=== PATIENT | female | born 1955 | race Caucasian/White ===

== ENCOUNTER 2019-01-03 13:27 | Observation (INO) | payer SELFPAY ==
[~2019-01-03] VITALS: Ht 165.1 cm; Wt 123.4 kg
[~2019-01-03 13:27] MED LIST: ATENOLOL50 MG PO; DURAGESIC1 EAC1; NORCO 10-325 T1 EACH PO; PROZAC10 MG PO
--- OUTSIDE RECORDS SUMMARY | 2019-01-03 13:30 | XMS REPORT ---
Author Author Stefanie Barnett [facility] [place] eClinicalWorks Address Unknown Phone Unavailable Care Team Providers Care Transit Manager Name Role Phone Stefanie Barnett Unavailable Allergies, Adverse Reactions, Alerts Substance Reaction Event Type Band-Aid Anti-Itch Info Not Available Drug Allergy Reglan Info Not Available Drug Allergy Demerol Info Not Available Drug Allergy tape Info Not Available Non Drug Allergy Sulfa Info Not Available Non Drug Allergy Problems Problem Type Condition Code Onset Dates Condition Status Assessment Depression, major, recurrent, moderate F33.1 Active Problem Autoimmune disease, not elsewhere classified M35.9 Active Problem Anxiety F41.9 Active Problem Psoriasis L40.9 Active Problem Fibromyalgia M79.7 Active Problem Depression, major, recurrent, moderate F33.1 Active Problem Other ulcerative colitis with complication K51.819 Active Problem Acquired hypothyroidism E03.9 Active Problem Irritable bowel syndrome with diarrhea K58.0 Active Assessment Annual physical exam Z00.00 Active Assessment Psoriasis L40.9 Active Assessment Polyarthralgia M25.50 Active Assessment Acquired hypothyroidism E03.9 Active Assessment Irritable bowel syndrome with diarrhea K58.0 Active Assessment Fibromyalgia M79.7 Active Assessment Elevated blood pressure reading without diagnosis of hypertension R03.0 Active Assessment Anxiety F41.9 Active Medications Medication Code System Code Instructions Start Date End Date Status Dosage Baclofen ND 74119773842 10 mg Orally at bedtime Active 1 tablet Tizanidine HCl [facility] 65107549639 4 mg Orally four times a day (qid) Active 1 tablet as needed Lorazepam ND 55251830207 1 MG Orally qd prn anxiety Jul 13, 2018 Active 1 tablet Prozac [facility] 64353006697 20 mg Orally Once a day Jul 13, 2018 Active 1 capsule Triamcinolone Acetonide [facility] 02613654767 0.1 % Externally Twice a day Jul 13, 2018 Active 1 application to affected area Fentanyl ND 45700780348 50 MCG/HR Transdermal Active 1 patch to skin Amitriptyline HCl ND 93859764937 50 MG Orally Once a day Active 1 tablet Kabetogama [facility] 18933015021 10-325 MG Orally every 12 hrs Active 1 tablet as needed Atenolol [facility] 82396363833 50 MG Orally Once a day Active 1 tablet [place] Thyroid [facility] 82750167793 120 mg Orally Once a day Jul 13, 2018 Active 1 tablet on an empty stomach Gabapentin [facility] 00077964508 600 MG Orally four times a day (qid) Active 1 tablet BusPIRone HCl [facility] 28780102151 15 MG Orally then 1 tablet qd Jul 13, 2018 Active 1/2 tablet bid for 1 week Vital Signs Date/Time: Jul 13, 2018 Cardiac Monitoring Heart Rate 120 /min Temperature 96.9 F Results No Known Results Summary Purpose eClinicalWorks Submission
--- OUTSIDE RECORDS SUMMARY | 2019-01-03 13:30 | XMS REPORT | Continuity of Care Document ---
Author Author [facility] Interface Address Unknown Phone Unavailable Problems Problem Status Onset Date Classification Date Reported Comments Source Depression, major, recurrent, moderate Active Diagnosis 12/29/2018 [id number] Autoimmune disease, not elsewhere classified Active Problem 12/29/2018 2.16.840.1.070926.4.391.11.53568 Anxiety Active Problem 12/29/2018 2.16.840.1.232241.4.391.11.35226 Psoriasis Active Problem 12/29/2018 2.16.840.1.736289.4.391.11.53581 Fibromyalgia Active Problem 12/29/2018 2.16.840.1.270150.4.391.11.81337 Other ulcerative colitis with complication Active Problem 12/29/2018 2.16.840.1.197693.4.391.11.03288 Acquired hypothyroidism Active Problem 12/29/2018 2.16.840.1.204490.4.391.11.20384 Irritable bowel syndrome with diarrhea Active Problem 12/29/2018 2.16.840.1.970941.4.391.11.74342 Polyarthralgia Active Diagnosis 12/29/2018 2.16.840.1.896792.4.391.11.09907 Elevated blood pressure reading without diagnosis of hypertension Active Diagnosis 12/29/2018 2.16.840.1.162010.4.391.11.08020 Medications Medication Details Route Status Patient Instructions Ordering Provider Order Date Source Lorazepam 1 tablet Orally Active 1 MG Orally qd prn anxiety Angelina Cerna 07/13/2018 2.16.840.1.613004.4.391.11.62651 Prozac 1 capsule Orally Active 20 mg Orally Once a day Wilfridojigna Cerna 07/13/2018 2.16.840.1.857544.4.391.11.63408 Triamcinolone Acetonide 1 application to affected area Externally Active 0.1 % Externally Twice a day [facility] 07/13/2018 2.16.840.1.282525.4.391.11.97472 [place] Thyroid 1 tablet on an empty stomach Orally Active 120 mg Orally Once a day [facility] 07/13/2018 2.16.840.1.257210.4.391.11.12326 BusPIRone HCl 1/2 tablet bid for 1 week Orally Active 15 MG Orally then 1 tablet qd [facility] 07/13/2018 2.16.840.1.801855.4.391.11.56398 Baclofen 1 tablet Orally Active 10 mg Orally at bedtime [facility] 2.16.840.1.417088.4.391.11.81625 Tizanidine HCl 1 tablet as needed Orally Active 4 mg Orally four times a day (qid) [facility] 2.16.840.1.705106.4.391.11.63892 Fentanyl 1 patch to skin Transdermal Active 50 MCG/HR Transdermal [facility] 2.16.840.1.774377.4.391.11.88918 Amitriptyline HCl 1 tablet Orally Active 50 MG Orally Once a day [facility] 2.16.840.1.387909.4.391.11.86108 [place] 1 tablet as needed Orally Active 10-325 MG Orally every 12 hrs [facility] 2.16.840.1.305149.4.391.11.66991 Atenolol 1 tablet Orally Active 50 MG Orally Once a day [facility] 2.16.840.1.813129.4.391.11.49632 Gabapentin 1 tablet Orally Active 600 MG Orally four times a day (qid) [facility] 2.16.840.1.719455.4.391.11.61323 Allergies, Adverse Reactions, Alerts Substance Category Reaction Severity Reaction type Status Date Reported Comments Source Band-Aid Anti-Itch Adverse Reaction Info Not Available Adverse Reaction Active 07/13/2018 2.16.840.1.541469.4.391.11.42292 Reglan Adverse Reaction Info Not Available Adverse Reaction Active 07/13/2018 2.16.840.1.805239.4.391.11.69234 Demerol Adverse Reaction Info Not Available Adverse Reaction Active 07/13/2018 2.16.840.1.722756.4.391.11.25390 tape Adverse Reaction Info Not Available Adverse Reaction Active 07/13/2018 2.16.840.1.313260.4.391.11.12586 Sulfa Adverse Reaction Info Not Available Adverse Reaction Active 07/13/2018 2.16.840.1.910372.4.391.11.15271 Immunizations Immunization Date Given Site Status Last Updated Comments Source Results Order Name Results Value Reference Range Date Interpretation Comments Source Vital Signs Vital Sign Value Date Comments Source Heart Rate 120 07/13/2018 2.16.840.1.854874.4.391.11.66185 Temperature Oral (F) 96.9 F 07/13/2018 2.16.840.1.948832.4.391.11.66064 Encounters Location Location Details Encounter Type Encounter Number Reason For Visit Attending Provider ADM Date DC Date Status Source Procedures Procedure Code Date Perfomer Comments Source
[2019-01-03 14:43] LABS: BASOPHILS # (AUTO) 0.1 (0.0-0.1); BASOPHILS % 0.9 % (0.0-1.0); EOSINOPHILS # (AUTO) 0.2 (0.0-0.4); EOSINOPHILS % 1.9 % (0.0-6.0); HEMATOCRIT 45.9 % (34.2-44.1); HEMOGLOBIN 14.9 g/dL (12.0-16.0); LYMPHOCYTES # (AUTO) 2.2 (1.0-3.2); MEAN CORPUSCULAR HEMOGLOBIN 29.3 pg (28-32); MEAN CORPUSCULAR HGB CONC 32.5 g/dL (31-35); MEAN CORPUSCULAR VOLUME 90.4 fL (81-99); MONOCYTES # (AUTO) 0.6 (0.2-0.8); MONOCYTES % 6.6 % (4.4-11.3); NEUTROPHILS # (AUTO) 5.4 (2.1-6.9); NEUTROPHILS % 64.1 % (38.7-80.0); PLATELET COUNT 248 x10e3/uL (140-360); RED BLOOD COUNT 5.08 x10e6/uL (3.6-5.1)
[2019-01-03 14:58] LABS: INR 0.79; PROTHROMBIN TIME 11.4 seconds (11.9-14.5)
[2019-01-03 14:59] LABS: PARTIAL THROMBOPLASTIN TIME 30.7 seconds (23.8-35.5)
[2019-01-03 15:06] LABS: ALBUMIN 4.1 g/dL (3.5-5.0); ALBUMIN/GLOBULIN RATIO 0.8 (0.8-2.0); ANION GAP 17.4 mmol/L (8-16); CALCIUM 11.9 mg/dL (8.4-10.2); CREATININE, SERUM 1.82 mg/dL (0.57-1.11); POTASSIUM 4.4 mmol/L (3.5-5.1)
[2019-01-03 15:25] LABS: THYROID STIMULATING HORMONE 1.547 uIU/mL (0.350-4.940)
[2019-01-03] MEDS ORDERED: LORAZEPAM INJ 2 MG/ML VIAL IV ONE (15:45)
[2019-01-03] MEDS ORDERED: HYDROCODONE/APAP 10MG-325MG TAB PO ONE (15:45)
--- NOTE | 2019-01-03 16:58 | Diagnostic Imaging Report ---
Exam: Brain MRI without contrast History: Bilateral hand numbness and tingling, possible multiple sclerosis Comparison studies: None Technique: Sagittal T2; axial DWI, FLAIR, MPGR, T1, Coronal FLAIR. Intravenous contrast: None Findings: Scalp: Normal in signal . No masses . Bone marrow: Normal in signal intensity. Extra-axial: No masses or fluid collections. Brain sulci: Appropriate for age. Ventricles: Normal in size . No hydrocephalus . Parenchyma: Few punctate T2/flair hyperintense foci in the supratentorial white matter, nonspecific findings, likely represent microvascular ischemic changes. No masses, hemorrhage, acute or chronic cortical ischemic insults. Suprasellar region: No abnormalities. Craniocervical junction: No abnormalities. Patent foramen magnum. No Chiari one malformation. Vessels: Normal flow-voids in the arteries and sinuses. IMPRESSION: 1. Few punctate foci of T2/FLAIR hyperintensity in the supratentorial white matter are non-specific but most commonly represent microvascular ischemic changes. 2. No findings which are characteristic for multiple sclerosis. Specifically, none meet the required modified Harden diagnostic criteria for multiple sclerosis. A preliminary report was provided by Dr. Zaman on 01/03/2019 4:55 PM. Signed by: Jordin Zaman MD on 01/03/2019 4:55 PM
[2019-01-03] MEDS ORDERED: FENTANYL 50 MCG/HR PATCH TOP STA (17:28)
[2019-01-03] MEDS: SODIUM CHLORIDE 0.9% 1000ML 1,000 ML IV SCH ×3 (18:27→21:40)
[2019-01-03] MEDS ORDERED: DEXTROSE 50% SYRINGE 50 ML IV PRN (19:30)
[2019-01-03] MEDS ORDERED: ONDANSETRON HCL INJ 2MG/ML 2ML 2 MG/ML VIAL IV PRN (19:30)
[2019-01-03] MEDS ORDERED: ONDANSETRON HCL INJ 2MG/ML 2ML 2 MG/ML VIAL IV STA (19:38)
[2019-01-03] MEDS ORDERED: MORPHINE SULFATE 2 MG/ML SYR 1ML IV STA (19:38)
[2019-01-03] MEDS ORDERED: MORPHINE SULFATE INJ 4 MG/ML INJ 1ML IV NR (19:45)
--- OUTSIDE RECORDS SUMMARY | 2019-01-03 20:14 | XMS REPORT ---
Author Author [facility] Address Unknown Phone Unavailable Care Team Providers Care Plant Floor Automation Manager Name Role Phone Tony BEARD Unavailable Unavailable Problems This patient has no known problems. Allergies, Adverse Reactions, Alerts This patient has no known allergies or adverse reactions. Medications This patient has no known medications. Results Test Description Test Time Test Comments Text Results Atomic Results Result Comments MRI BRAIN WO 2019-01-03 16:47:00 [place] [address] Patient Name: PINO HENDERSON MR #: [id number] : 1955 Age/Sex: 63/F Req #: [id number] Adm Physician: Ordered by: JOSEPH BEARD MD Report #: [id number] Location: ER Room/Bed: Procedure: [id number] MRI/MRI BRAIN WO Exam Date: Exam Time: REPORT STATUS: Signed Exam: Brain MRI without contrast History: Bilateral hand numbness and tingling, possible multiple sclerosis Comparison studies: None Technique: Sagittal T2; axial DWI, FLAIR, MPGR, T1, Coronal FLAIR. Intravenous contrast: None Findings: Scalp: Normal in signal . No masses . Bone marrow: Normal in signal intensity. Extra-axial: No masses or fluid collections. Brain sulci: Appropriate for age. Ventricles: Normal in size . No hydrocephalus . Parenchyma: Few punctate T2/flair hyperintense foci in the supratentorial white matter, nonspecific findings, likely represent microvascular ischemic changes. No masses, hemorrhage, acute or chronic cortical ischemic insults. Suprasellar region: No abnormalities. Craniocervical junction: No abnormalities. Patent foramen magnum. No Chiari one malformation. Vessels: Normal flow-voids in the arteries and sinuses. IMPRESSION: 1. Few punctate foci of T2/FLAIR hyperintensity in the supratentorial white matter are non-specific but most commonly represent microvascular ischemic changes. 2. No findings which are characteristic for multiple sclerosis. Specifically, none meet the required modified Harden diagnostic criteria for multiple sclerosis. A preliminary report was provided by Dr. Dasilva on 01/03/2019 4:55 PM. Signed by: Christa Dasilva MD on 01/03/2019 4:55 PM Dictated By: CHRISTA DASILVA MD Transcribed By: ABIGAIL on 01/03/191654 COPY TO: JOSEPH BEARD MD
[2019-01-03] MEDS: INSULIN GLARGINE 100 UNITS/ML VIAL SQ SCH (21:00)
[2019-01-03] MEDS: INSULIN LISPRO 100 UNIT/1 ML 3ML VIAL SQ SCH (21:12)
[2019-01-03] MEDS ORDERED: BACLOFEN10 MG PO (21:37)
[2019-01-03] MEDS ORDERED: ZANAFLEX4 MG (21:37)
[2019-01-03] MEDS ORDERED: GABAPENTIN400 MG PO (21:37)
[2019-01-03] MEDS ORDERED: AMITRIPTYLINE H25 MG PO (21:37)
[2019-01-03] MEDS ORDERED: LISINOPRIL10 MG PO (21:37)
--- NOTE | 2019-01-03 23:07 | NUR ---
Pt received from ER.Pt A&O and in no apparent distress. All safety measures ensured and pt call [place] near.
[2019-01-03 23:15] VITALS: BP 184/66
[2019-01-03 23:54] VITALS: BP 184/66
--- NOTE | 2019-01-03 23:59 | NUR ---
Call placed to Dr. Byers for order for pt pain meds.
[2019-01-04] MEDS ORDERED: FENTANYL 50 MCG/HR PATCH TD SCH (00:15)
[2019-01-04] MEDS ORDERED: HYDROCODONE/APAP 10MG-325MG TAB PO ONE (00:15)
--- NOTE | 2019-01-04 00:20 | NUR ---
Dr. Byers returned MD noelle orders given for one time dose of Isabel 10mg po and Fentanyl 50mcg patch q 72h to be restarted from pt home med list.
[2019-01-04] MEDS: SODIUM CHLORIDE 0.9% 1000ML 1,000 ML IV SCH ×3 (03:18→20:00)
[2019-01-04 04:00] VITALS: BP 78/48
[2019-01-04 05:37] LABS: BASOPHILS # (AUTO) 0.1 (0.0-0.1); EOSINOPHILS # (AUTO) 0.2 (0.0-0.4); EOSINOPHILS % 2.6 % (0.0-6.0); HEMATOCRIT 35.9 % (34.2-44.1); HEMOGLOBIN 11.7 g/dL (12.0-16.0); LYMPHOCYTES # (AUTO) 2.4 (1.0-3.2); LYMPHOCYTES % 32.6 % (18.0-39.1); MEAN CORPUSCULAR HEMOGLOBIN 29.6 pg (28-32); MEAN CORPUSCULAR HGB CONC 32.6 g/dL (31-35); MEAN CORPUSCULAR VOLUME 90.9 fL (81-99); MONOCYTES # (AUTO) 0.7 (0.2-0.8); NEUTROPHILS # (AUTO) 3.9 (2.1-6.9); NEUTROPHILS % 54.5 % (38.7-80.0); PLATELET COUNT 206 x10e3/uL (140-360); RED BLOOD COUNT 3.95 x10e6/uL (3.6-5.1); RED CELL DISTRIBUTION WIDTH 13.1 % (11.7-14.4)
--- NOTE | 2019-01-04 05:38 | NUR ---
Pt BP low 78/48. Rechecked BP and still same recording. Pt receiving Fentanyl 50mcg patch 3 72h and had Feura [place] 10mg po earlier. Pt respirations and other vitals normal. Pt IV fluids increased to increase BP. Asked pt about symptoms and her BP being low and pt admitted to taking her own meds of Lisinopril and Atenolol on her own without notifying me because she was "behind on taking her meds and she takes them at home like that." I explained to the pt that it is very important to not take meds without notifying the nurse. Pt expressed verbal understanding. Will continue to monitor pt and recheck BP.
[2019-01-04 06:04] LABS: ALBUMIN 2.9 g/dL (3.5-5.0); ALBUMIN/GLOBULIN RATIO 0.8 (0.8-2.0); CALCIUM 9.6 mg/dL (8.4-10.2); CREATININE, SERUM 1.64 mg/dL (0.57-1.11)
--- NOTE | 2019-01-04 06:20 | NUR ---
Pt repeat BP 82/43. Pt has no complaints and all other vitals still stable. Will inform day shift RN of situation and pt BP to be rechecked.
[2019-01-04 07:55] VITALS: BP 112/54
[2019-01-04] MEDS: INSULIN LISPRO 100 UNIT/1 ML 3ML VIAL SQ SCH ×6 (08:05→21:33)
[2019-01-04 08:43] VITALS: BP 112/54
[2019-01-04 11:19] VITALS: BP 104/56
--- NOTE | 2019-01-04 15:15 | NUR ---
Visit made by the Spiritual Care Department Pastoral Visitor, Cherry White. PV provided pastoral presence, prayer, hospitality, and supportive listening. Pastoral Visitor informed pt/family of the scope of [employer] and availability. SANJUANA GONZALES Principal Military Analyst Spiritual Care Department O: [phone] Pager: [phone] ([phone] number calling from)
[2019-01-04 16:00] VITALS: BP 105/56
[2019-01-04] MEDS: ATENOLOL 50 MG TAB PO SCH (16:30)
--- NOTE | 2019-01-04 17:10 | NUR ---
GAVE PACKET OF INFORMATION WITH COMM[employer]ITY [employer] FOR ASSISTANCE WITH LOW TO NO INCOME TO PATIENT. RESOURCES THAT PATIENT MAY BE ABLE TO FOLLOW UP UPON DISCHARGE. PT EDUCATED ON EACH RESOURCE AND UNDERSTANDING HOW TO FOLLOW UP TO SEE IF QUALIFIED FOR EACH RESOURCE.
--- NOTE | 2019-01-04 17:42 | NUR ---
GAVE SCHEDULED INSULIN BUT HELD SLIDING SCALE DUE TO NEWNESS OF DIAGNOSIS FOR FEAR OF BOTTOMING OUT BLOOD SUGAR.
[2019-01-04 20:00] VITALS: BP 130/64
[2019-01-04] MEDS ORDERED: GABAPENTIN 300 MG CAP PO SCH (21:00)
[2019-01-04] MEDS: INSULIN GLARGINE 100 UNITS/ML VIAL SQ SCH (21:33)
--- NOTE | 2019-01-04 21:47 | NUR ---
I called DR Byers at [phone] through his answering service. Dr. Byers called back at 2146. I stated the patient needed to take the following medications, and some of her medications were not renewed/continued. Amitriptyline 50mg qhs, Tizanidine 4mg QID prn Baclofen 10 mg QHS. Stated it was okay for the patient to take those medications. The patient brought her medications and prefers to take her own medication since she states "I am self pay, and do not want to pay for medications I already have". I will continue her medications.
[2019-01-05] VITALS: BP 143/55
[2019-01-05 00:19] VITALS: BP 130/64
--- NOTE | 2019-01-05 01:51 | Consultation ---
DATE OF CONSULTATION: 01/04/2019 Neurology Consult Note HISTORY OF PRESENT ILLNESS: Ms. Patton is a 63-year-old right-hand dominant woman with past medical history significant for chronic pain, hypertension, and recently diagnosed diabetes mellitus, admitted to [facility] on January 03, 2019 with pain and numbness. The patient awoke on the morning of January 01, 2019, with numbness affecting both hands, both arms, the neck, lower portion of the face, and tongue. Ms. Patton cannot say whether these symptoms began proximally and radiated distally or the reverse. She can only report numbness present in the areas described above. In addition to the numbness of the upper extremities, the patient reports numbness, burning pain, and tingling affecting the last three digits of both feet. The patient does not report a visual field cut or other disturbance, dysarthria, aphasia, weakness, poor balance, gait impairment, or dizziness associated with the above symptoms. Ms. Patton does report some confusion, which is further described as word-finding difficulty associated with the numbness and pain described above. On 01/03/2019, the patient contacted her pain management doctor regarding the above symptoms. The pain management doctor recommended the patient proceed to the emergency center of the closest hospital for further evaluation of her symptoms. Upon arrival in the emergency center, the patient was afebrile with a blood pressure of 168/114 mmHg and a pulse of 89 beats per minute. Her neurological examination was documented as being significant for mild weakness of the right leg. No other deficits were noted. In the emergency center, routine blood work revealed the patient to have a markedly elevated serum glucose of 456. Ms. Patton was also noted on routine blood work to have acute kidney injury with a BUN of 34, creatinine of 1.82, and estimated GFR of 28. A CT of the brain without contrast was performed, while the patient was in the emergency center as well. This study did not reveal evidence of recent large territorial ischemia or hemorrhage. Ms. Patton was admitted to [facility] under observation status for further evaluation and treatment of new onset diabetes mellitus, acute kidney injury, as well as pain and numbness. Ms. Patton reports the pain and numbness as described above persists at the time of this examination. However, she does report some improvement in the symptoms affecting her right side. Ms. Patton does have a known history of degenerative disk disease affecting the spine, for which she sees a pain management physician. REVIEW OF SYSTEMS: Burning with urination, confusion, facial numbness, numbness and tingling of the arms and legs, and neck and back pain. Otherwise, a 12-point review of systems is negative. PAST MEDICAL HISTORY: Hypertension, history of gestational diabetes mellitus, newly diagnosed diabetes mellitus, mitral valve prolapse, psoriatic arthritis, possible systemic lupus erythematosus, chronic neck and low back pain, fibromyalgia, myofascial syndrome, ulcerative colitis, a prior history of idiopathic intracranial hypertension. PAST SURGICAL HISTORY: section x3, cholecystectomy, partial hysterectomy with appendectomy. PAST HOSPITALIZATIONS: Surgeries/procedures as listed, numerous hospitalizations often due to gastrointestinal illness. FAMILY MEDICAL HISTORY: Diabetes mellitus and coronary artery disease. SOCIAL HISTORY: Ms. Patton is single. She is not employed. The patient does report a prior history of tobacco use, but quit smoking cigarettes approximately 40 years ago. The patient reports rare alcohol use. Ms. Patton does not report current or prior recreational drug use. HOME MEDICATIONS: Amitriptyline 50 mg by mouth at bedtime daily, atenolol 50 mg by mouth twice daily, baclofen 10 mg by mouth at bedtime daily, fentanyl patch 50 mcg, gabapentin 1200 mg by mouth three times daily, lisinopril 20 mg by mouth daily, and Zanaflex 4 mg by mouth four times daily. HOSPITAL MEDICATIONS: Atenolol, fentanyl, gabapentin, Lantus, Humalog, lisinopril, Zofran. ALLERGIES: SULFA, CLINDAMYCIN, HYDROMORPHONE, MEPERIDINE, AND METOCLOPRAMIDE. NO KNOWN FOOD ALLERGIES. NO KNOWN ALLERGIES TO LATEX. NO KNOWN ALLERGIES TO IODINE OR OTHER CONTRAST MATERIALS. PHYSICAL EXAMINATION: VITAL SIGNS: Height 65 inches, weight 272 pounds, BMI 45.3 kg/m2, blood pressure 105/56 mmHg, pulse 66 beats per minute, respiratory rate 16 breaths per minute, and oxygen saturation 98% on room air. GENERAL: The patient is awake and alert, does not appear distressed. Morbidly obese. HEENT: Normocephalic, atraumatic. Pupils are equal, round, and reactive to light. Moist mucous membranes. NECK: Supple. No appreciable thyromegaly. No appreciable carotid bruits. CARDIOVASCULAR: S1, S2, regular rate and rhythm. No murmurs, rubs, or gallops. RESPIRATORY: Clear to auscultation bilaterally. No wheezes, rhonchi, or rales. EXTREMITIES: The skin is warm and dry. No clubbing, cyanosis, or edema. The posterior tibial and dorsalis pedis pulses are 1+ and symmetric. SKIN: Psoriatic lesions over the bilateral legs. NEUROLOGIC: Memory/Attention: The patient is awake and alert, oriented to person, place, time, and situation. Cranial Nerves: Cranial nerve I - not tested. Cranial nerves II, III, IV, and - pupils are equal and round, react briskly to light (from 4 mm to 2 mm). Extraocular movements intact. No nystagmus. Cranial nerve V - sensation to light touch and pinprick is intact in the bilateral V1 through V3 distributions. Strength of the temporalis and masseter muscles are within normal limits. Cranial nerve VII - the face is symmetric as are all facial movements. Strength is within normal limits. Cranial nerve VIII - hearing is intact to finger rub bilaterally. Cranial nerves IX, X - the soft palate elevates equally and symmetrically. Cranial nerve XI - normal strength of the bilateral sternocleidomastoid and trapezius muscles. Cranial nerve XII - the tongue protrudes in midline and moves symmetrically from [id number]. Strength: Bulk is normal. Strength is 5/5 in the bilateral deltoids, biceps, triceps, wrist flexors and extensors, finger flexors and extensors, intrinsic hand muscles, hip flexors, knee flexors and extensors, ankle dorsiflexion and plantar flexion, and intrinsic foot muscles. Tone is normal. DTRs: Deep tendon reflexes are 2+ and symmetric at the triceps, biceps, brachioradialis, and patellas. Deep tendon reflexes are 1+ and symmetric at the Achilles. Plantar responses are flexor bilaterally. Sensation: Sensation is intact to light touch and pinprick in both arms and both legs. Cerebellar: Rycbql-tuqj-ujsvfk and heel-ovalle movements are intact without dysmetria or other impairment. Gait: Spontaneous gait is intact without impairment. Speech: Spontaneous speech is normal without appreciable dysarthria or aphasia. Repetition is intact. Involuntary movements: None. Pronator Drift: None. LABORATORY DATA: The most recent comprehensive metabolic panel is significant for sodium of 134, BUN of 28, creatinine of 1.64, estimated GFR of 32, serum glucose of 372, total protein of 6.4, and albumin of 2.9. Cardiac enzymes are negative x1. TSH 1.547. In the past 24 hours, the patient's serum glucoses have ranged from 176 to 456. The CBC with differential and platelets are unremarkable. PT 11.4, INR 0.79, and PTT 30.7. DIAGNOSTIC STUDIES: Electrocardiogram on 01/03/2019: Normal sinus rhythm at 90 beats per minute. Left atrial enlargement. MRI of the brain without contrast on 01/03/2019: On my review, there is no evidence of recent or remote large territorial ischemia, hemorrhage, mass, or mass effect. There are few scattered T2/FLAIR hyperintense foci in the supratentorial white matter compatible with mild chronic small vessel ischemic disease. Cerebral volumes are appropriate for age. ASSESSMENT AND PLAN: Ms. Patton is a 63-year-old right-hand dominant woman with past medical history as detailed, admitted to [facility] on January 03, 2019, with newly diagnosed diabetes mellitus, acute kidney injury, and pain and numbness as described in the history of present illness. At present, the patient's neurological examination is nonfocal. Her laboratory data and other diagnostic studies have been reviewed and are documented above. There is no evidence of stroke, multiple sclerosis, peripheral neuropathy, or other neurological disorder as the cause of the patient's symptoms. Given her history of chronic pain, Ms. Patton's current pain as well as the numbness is probably due to a combination of degenerative disk disease of the spine, fibromyalgia, and myofascial syndrome. There are no recommendations from the Neurology Service at this time. Consider a consult with Pain Management to address the patient's pain. Thank you for this consultation. Please call again with any questions or concerns. TIME SPENT: 50 minutes. Samina Prakash MD CP/KELLY /[phone] SAMIRA
[2019-01-05] MEDS: SODIUM CHLORIDE 0.9% 1000ML 1,000 ML IV SCH (03:28)
[2019-01-05 04:00] VITALS: BP 116/66
[2019-01-05] MEDS ORDERED: TIZANIDINE HCL 4 MG TAB PO PRN (05:00)
--- NOTE | 2019-01-05 06:32 | NUR ---
The patient is laying on her right side, eyes close, respirations are even and unlabored. Patient is no apparent distress. HOB elevated, bed low, wheels locked, and call light within reach. IV patent.
[2019-01-05 07:52] VITALS: BP 103/58
[2019-01-05] MEDS: INSULIN LISPRO 100 UNIT/1 ML 3ML VIAL SQ SCH ×4 (07:56→12:00)
[2019-01-05 08:05] VITALS: BP 103/58
[2019-01-05] MEDS: ATENOLOL 50 MG TAB PO SCH (08:40)
[2019-01-05] MEDS ORDERED: ONDANSETRON HCL 4 MG ORAL DISINTEGRATING TAB PO PRN (09:00)
[2019-01-05] MEDS ORDERED: LISINOPRIL 10 MG TAB PO SCH (09:00)
--- NOTE | 2019-01-05 09:05 | NUR ---
patient up in bed, AAOx3, Denies any pain or SOB, Dr Byers had rounds
[2019-01-05] MEDS ORDERED: LOSARTAN POTASS25 MG PO (11:33)
[2019-01-05] MEDS ORDERED: ZOCOR20 MG PO (11:33)
[2019-01-05] MEDS ORDERED: HUMULIN R100 UNIT/2 SC (11:34)
[2019-01-05 11:41] VITALS: BP 95/46
--- NOTE | 2019-01-05 12:39 | NUR ---
Nutrition Screen Note RD Recommendation for Physician: -Continue ADA diet as ordered -RD provided diabetic education on 01/05. Plan of Care: RD following, monitoring for tolerance and adequacy, diet education Nutrition reason for involvement: RN Consult ADA education Primary Diagnose(s): new ADA PMH: hypertension, history of gestational diabetes mellitus, newly diagnosed diabetes mellitus, mitral valve prolapse, psoriatic arthritis, possible systemic lupus erythematosus, chronic neck and low back pain, fibromyalgia, myofascial syndrome, ulcerative colitis, a prior history of idiopathic intracranial hypertension. Ht: 65in Wt: 272lb BMI: 45.3kg/m2 IBW: 125lb RD Assessment: (01/05) Chart reviewed. Labs and meds reviewed. 63yo F, who was admitted for pain and numbness. RD consulted for diabetic education. Visited pt in the room. Pt reported good appetite with no GI complains. No chewing or swallowing difficulty. Pt reported 15lbs weight gain in the last 3-[address] provided diet education as consulted. Will continue to monitor and follow. Current Diet: ADA Malnutrition Evaluation (01/05) The patient does not meet criteria for a specified degree of malnutrition at this time. Will re-evaluate at follow-up as appropriate. Diet Education Needs Assessment: Diet education indicated, pt was agreeable with plan. Learner(s): pt Time spent: 30minutes Barriers: No barriers identified. Cultural/Language Modifications: No cultural/language modifications noted. Pt speaks Welsh. Readiness: Pt eager to learn. Method: Handout, explanation Topics: Carbohydrate exchanges, Carbohydrate counting handouts, Reading the nutrition label, meal planning tips, exercise tips, servings/portion sizes, S/S of hypo & hyperglycemia Understanding/Compliance: Expect good understanding/compliance from pt. Will benefit from reinforcement. All questions have been answered. Nutrition Care Level: low Signed: Denisse Phillip, MS, RD, LD
--- NOTE | 2019-01-05 12:57 | NUR ---
patient discharged home , prescription given, instruction and hand off notes given regarding Diabetes management and diet. IV canula removed with tip intact, no ss of infiltration, no bruises noted. denies any SOB or pain, no distress noted, had lunch, son here in building to pick her. transported via to [facility]
[2019-01-05] MEDS ORDERED: AMITRIPTYLINE HCL 25 MG TAB PO SCH (21:00)
[2019-01-05] MEDS ORDERED: BACLOFEN 10 MG TAB PO SCH (21:00)
--- NOTE | 2019-01-06 05:08 | Discharge Summary ---
HOSPITAL COURSE: Ms. Patton is a 63-year-old female with history of diabetes and hypertension, came to the emergency room complaining of numbness of her hands, feet. She was seen by Brain MRI was completely negative. The patient has history also of fibromyalgia, chronic back pain, psoriatic arthritis. She is on pain management. She was found to have elevated blood sugars, so the plan is to discharge her home on ADA diet and insulin. PHYSICAL EXAMINATION: GENERAL: Today, she is awake and alert. VITAL SIGNS: Temperature is 97.4, blood pressure 103/58. HEART: Regular rate. LUNGS: Clear to auscultation. ABDOMEN: Soft. LABORATORY DATA: Potassium 5.0, creatinine is 1.64, and glucose was 204 this morning. White count 7.23, hemoglobin 11.7, hematocrit 35.9. The MRI, like I said before was negative for any acute stroke. DISCHARGE DIAGNOSES: 1. Diabetes type 2 with hyperglycemia. 2. Diabetes type 2 with chronic kidney disease. 3. Chronic kidney disease stage 3. 4. Upper and lower extremity numbness. CVA was ruled out. 5. Fibromyalgia. 6. Chronic back pain. 7. Psoriatic arthritis. 8. Hypertension. PLAN: The plan at the present time is to discharge the patient home. Have her follow up with her PCP in one week. Follow up with her pain management. We are going to put her on insulin R 15 units subcu q.a.c., and insulin N 20 units subcu at bedtime. She is also going to be on losartan 25 mg daily and simvastatin 20 mg daily. All this was discussed with the patient. All questions were answered to satisfaction. Please see home medication reconciliation list. She needs to follow up with her PCP in one week. She is to call me or come back to the emergency room if any recurrent problem. MD ARLEN Rothman/MODL /[id number]
== END 2019-01-05 13:00 | disposition home or self-care (01) ==
LOC: ER 13:27 → ERHOLD 20:11 → IMCU 23:07
PROVIDERS: ADMIT Internal Medicine; ATTEND Internal Medicine
DX: E11.65 Type 2 diabetes mellitus with hyperglycemia (principal); E11.22 Type 2 diabetes mellitus with diabetic chronic kidney disease; I12.9 Hypertensive chronic kidney disease with stage 1 through stage 4 chronic kidney disease, or unspecified chronic kidney disease; N18.3 Chronic kidney disease, stage 3 (moderate); N17.9 Acute kidney failure, unspecified; Z88.2 Allergy status to sulfonamides; Z88.8 Allergy status to other drugs, medicaments and biological substances; R20.2 Paresthesia of skin; E78.5 Hyperlipidemia, unspecified; E87.1 Hypo-osmolality and hyponatremia; M79.7 Fibromyalgia; G89.4 Chronic pain syndrome; K51.90 Ulcerative colitis, unspecified, without complications; Z90.49 Acquired absence of other specified parts of digestive tract; R20.0 Anesthesia of skin; L40.50 Arthropathic psoriasis, unspecified
CPT/HCPCS: 36415 ×3; 70551; 80053 ×2; 82550; 82553; 82948 ×3; 84443; 84484; 85025 ×2; 85610; 85730; 93005; 99284; G0378 ×3; J1815 ×2; J2060; J2270; J2405; J7030 ×3